=== PATIENT | female | born 1985 | race Caucasian/White ===

== ENCOUNTER 2016-11-29 16:47 | Emergency (ER) | payer MEDICARE, OTHER ==
[2016-11-29 16:59] VITALS: TEMP 97.3
--- NOTE | 2016-11-29 17:58 | ED ---
Psych HPI - General Chief Complaint: Psychiatric Symptoms Stated Complaint: Mental Health Time Seen by Provider: 11/29/16 17:26 Source: patient, RN notes reviewed Mode of arrival: ambulatory Limitations: no limitations - History of Present Illness Initial Comments: 31-year-old female presents emergency Department with chief complaint anxiety, hopeless feeling. Patient states that she is very anxious and having a panic attack. Patient states that she has had some suicidal thoughts though no plan. She states she just more she feels hopeless. Patient denies any alcohol or drug use at this time. Patient states that she has been locked up until multiple times. Patient has a physical complaints including chest pain, shortness breath, fever, chills. Patient offers no other complaints. - Related Data Home Medications Medication Instructions Recorded Confirmed Acetaminophen/Diphenhydramine 1 tab PO HS PRN 11/29/16 11/29/16 [Tylenol PM 500-25mg] Previous Rx's Medication Instructions Recorded QUEtiapine [SEROquel] 25 mg PO TID #28 tab 11/29/16 Allergies Allergy/AdvReac Type Severity Reaction Status Date / Time Penicillins Allergy Unknown Verified 11/29/16 18:15 Review of Systems ROS Statement: Those systems with pertinent positive or pertinent negative responses have been documented in the HPI. ROS Other: All systems not noted in ROS Statement are negative. Past Medical History Past Medical History: No Reported History History of Any Multi-Drug Resistant Organisms: None Reported Past Surgical History: Section Past Psychological History: Anxiety, Depression, Schizoaffective Disorder Smoking Status: Current every day smoker Past Alcohol Use History: Occasional Past Drug Use History: None Reported General Exam Limitations: no limitations General appearance: alert, in no apparent distress Head exam: Present: atraumatic, normocephalic, normal inspection Neck exam: Present: normal inspection. Absent: tenderness, meningismus, lymphadenopathy Respiratory exam: Present: normal lung sounds bilaterally. Absent: respiratory distress, wheezes, rales, rhonchi, stridor Cardiovascular Exam: Present: normal rhythm, tachycardia, normal heart sounds. Absent: systolic murmur, diastolic murmur, rubs, gallop, clicks Neurological exam: Present: alert, oriented X3, CN II-XII intact, reflexes normal. Absent: motor sensory deficit Psychiatric exam: Present: anxious Skin exam: Present: warm, dry, intact, normal color. Absent: rash Course Vital Signs 11/29/16 16:55 Temperature 97.3 F L Pulse Rate 112 H Respiratory 18 Rate Blood Pressure 137/90 O2 Sat by Pulse 98 Oximetry Medical Decision Making - Medical Decision Making 31-year-old female presented emergency department for anxiety panic attack. Patient was evaluated by EPS and discussed with psychiatrist. They do recommend cervical 25 mg 3 times a day for bipolar disorder. Patient is not suicidal. Patient will be discharged. - Lab Data Lab Results 11/29/16 11/29/16 Range/Units 17:50 17:58 Urine Color Colorless Urine Appearance Clear (Clear) Urine pH 6.5 (5.0-8.0) Ur Specific [place] 1.000 L (1.001-1.035) Urine Protein Negative (Negative) Urine Glucose (UA) Negative (Negative) Urine Ketones Negative (Negative) Urine Blood Negative (Negative) Urine Nitrate Negative (Negative) Urine Bilirubin Negative (Negative) Urine Urobilinogen <2.0 (<2.0) mg/dL Ur Leukocyte Esterase Negative (Negative) Urine Opiates Screen Not Detected (NotDetected) Ur Oxycodone Screen Not Detected (NotDetected) Urine Methadone Screen Not Detected (NotDetected) Ur Propoxyphene Screen Not Detected (NotDetected) Ur Barbiturates Screen Not Detected (NotDetected) U Tricyclic Antidepress Not Detected (NotDetected) Ur Phencyclidine Scrn Not Detected (NotDetected) Ur Amphetamines Screen Not Detected (NotDetected) U Methamphetamines Scrn Not Detected (NotDetected) U Benzodiazepines Scrn Not Detected (NotDetected) Urine Cocaine Screen Not Detected (NotDetected) U Marijuana (THC) Screen Not Detected (NotDetected) Disposition Clinical Impression: Acute anxiety, Bipolar disorder Disposition: HOME SELF-CARE Condition: Stable Instructions: Generalized Anxiety Disorder (ED) Additional Instructions: Please return to the Emergency Department if symptoms worsen or any other concerns. Prescriptions: QUEtiapine [SEROquel] 25 mg PO TID #28 tab Time of Disposition: 19:14
[2016-11-29 18:43] LABS: Appearance,Urine Clear (Clear); Bilirubin,Urine Negative (Negative); Glucose,Urine (UA) Negative (Negative); Ketones,Urine Negative (Negative); Leukocyte Esterase,Urine Negative (Negative); Nitrite,Urine Negative (Negative); PH, Urine 6.5 (5.0-8.0); Protein,Urine Negative (Negative); UA Billing (MACRO vs. MICRO) CHEM; Urobilinogen,Urine <2.0 mg/dL (<2.0)
[2016-11-29] MEDS ORDERED: LORazepam 1 MG TAB PO STA (18:49)
[2016-11-29 19:29] VITALS: BP 124/89; PULSE 100; RESP 16
== END 2016-11-29 19:29 | disposition home or self-care (01) ==
LOC: EC 16:47
DX: F41.0 Panic disorder [episodic paroxysmal anxiety] (principal); F31.9 Bipolar disorder, unspecified; R45.851 Suicidal ideations; R07.9 Chest pain, unspecified; R50.9 Fever, unspecified; R06.02 Shortness of breath; Z88.0 Allergy status to penicillin; F17.200 Nicotine dependence, unspecified, uncomplicated
CPT/HCPCS: 80306; 81003; 82075; 99284

== ENCOUNTER 2017-05-04 23:27 | Emergency (ER) | payer MEDICARE, OTHER ==
[2017-05-04 23:38] VITALS: BP 118/81; PULSE 63; RESP 20; TEMP 97.7
[2017-05-05] MEDS ORDERED: SULFAMETH-TMP DS STARTER PACK 2 TAB BTL PO STA (00:14)
--- NOTE | 2017-05-05 00:18 | ED ---
Skin/Abscess/FB HPI - General Chief complaint: Skin/Abscess/Foreign Body Stated complaint: Bump Behind Ear Time Seen by Provider: 05/04/17 23:43 Source: patient, RN notes reviewed, old records reviewed Mode of arrival: ambulatory Limitations: no limitations - History of Present Illness Initial comments: This is a 32 year old female with Chief compliant of a large pimple behind the left ear. Patient reports that she noticed the swelling 2 days ago, patient reports she wears gages in her ears. Patient has no fever or chills, denies any problems hearing. Patient reports that she has never had this happen before. She reports that it started with irritation from the earrings. - Related Data Home Medications Medication Instructions Recorded Confirmed clonazePAM [KlonoPIN] 0.5 mg PO HS 05/04/17 05/04/17 Previous Rx's Medication Instructions Recorded Sulfamethox-Tmp 800-160Mg [Bactrim 1 tab PO Q12HR #20 tab 05/05/17 DS 800-160 mg] Allergies Allergy/AdvReac Type Severity Reaction Status Date / Time Penicillins Allergy Unknown Verified 05/04/17 23:38 Review of Systems ROS Statement: Those systems with pertinent positive or pertinent negative responses have been documented in the HPI. ROS Other: All systems not noted in ROS Statement are negative. Constitutional: Denies: fever, chills Eyes: Denies: eye pain Endocrine: Denies: heat or cold intolerance Gastrointestinal: Denies: abdominal pain Genitourinary: Denies: dysuria Musculoskeletal: Denies: back pain Neurological: Denies: headache, weakness Psychiatric: Denies: anxiety, depression Hematological/Lymphatic: Denies: easy bleeding Past Medical History Past Medical History: No Reported History Additional Past Medical History / Comment(s): anxiety History of Any Multi-Drug Resistant Organisms: None Reported Past Surgical History: Section Past Psychological History: Anxiety, Depression, Schizoaffective Disorder Smoking Status: Current every day smoker Past Alcohol Use History: Occasional Past Drug Use History: None Reported General Exam Limitations: no limitations General appearance: alert, in no apparent distress Head exam: Present: atraumatic, normocephalic, normal inspection Eye exam: Present: normal appearance, PERRL, EOMI. Absent: scleral icterus, conjunctival injection, periorbital swelling ENT exam: Present: normal exam, mucous membranes moist, other (Patient has erythema and swelling behind the right earlobe. Evidence of a superficial abscess.) Course Vital Signs 05/04/17 05/05/17 23:35 00:32 Temperature 97.7 F 97.7 F Pulse Rate 63 63 Respiratory 20 20 Rate Blood Pressure 118/81 118/81 O2 Sat by Pulse 98 98 Oximetry Procedures - Incision & Drainage Consent Obtained: verbal consent Indication: left earlobe access Size (cm): 2 Sterile Field Used?: Yes Scalpel Used: #11 I&D Drainage Obtained: Pus, Blood Culture Obtained?: Yes Patient Tolerated Procedure: well, no complications Medical Decision Making - Medical Decision Making This is a 32 year old female with Chief compliant of a large pimple behind the left ear. Patient reports that she noticed the swelling 2 days ago, patient reports she wears gages in her ears. Patient has no fever or chills, denies any problems hearing. Patient reports that she has never had this happen before. She reports that it started with irritation from the earrings. Patient ear abscess measures 2cm, and patient had incision and drainage. PAtient had pus drainage from the area. Patient will be started on antibiotics. PAtient could not be packed with iodoform due to location of area. Patient advised to follow up with PCP and to complete antibiotic prescription. Patient understands treatment planand will comply. Disposition Clinical Impression: Abscess, earlobe Disposition: HOME SELF-CARE Condition: Good Instructions: Abscess (ED) Additional Instructions: Monitor for any worsening signs of infection including worsening swelling redness and drainage. Follow-up with her primary care provider if symptoms continue to persist. Return to emergency department if any alarming signs or symptoms occur. Completely anabiotic prescription. Prescriptions: Sulfamethox-Tmp 800-160Mg [Bactrim DS 800-160 mg] 1 tab PO Q12HR #20 tab Referrals: Rikki Davey DO [Primary Care Provider] - 1-2 days Time of Disposition: 00:17
== END 2017-05-05 00:32 | disposition home or self-care (01) ==
LOC: EC 23:27
DX: H60.02 Abscess of left external ear (principal); F17.200 Nicotine dependence, unspecified, uncomplicated; Z79.899 Other long term (current) drug therapy; Z88.0 Allergy status to penicillin
CPT/HCPCS: 69000; 87070; 87205; 99284

== ENCOUNTER → 2020-01-30 | Outpatient (CLI) | payer BC ==
--- NOTE | 2020-01-30 12:17 | US ---
EXAMINATION TYPE: US pelvis complete transvag DATE OF EXAM: 01/30/2020 COMPARISON: NONE CLINICAL HISTORY: R10.2 PELVIC AND PERINEAL PAIN. Patient has left adnexal pain that extends down her leg when she lays down. TECHNIQUE: Transvaginal (TV) and Transabdominal (TA) . Transabdominal sonographic images of the pel vis were ordered by physician. Date of LMP: 01/23/20 EXAM MEASUREMENTS: Uterus: 9.2 x 5.0 x 5.7 cm Endometrial Stripe: 0.7 cm Right Ovary: 2.1 x 1.7 x 1.7 cm Left Ovary: 2.0 x 1.1 x 1.4 cm 1. Uterus: Anteverted wnl 2. Endometrium: wnl 3. Right Ovary: wnl 4. Left Ovary: wnl 5. Bilateral Adnexa: wnl 6. Posterior cul-de-sac: wnl IMPRESSION: Unremarkable pelvic ultrasound. Endometrial thickness is within normal limits.
== END | disposition home or self-care (01) ==
LOC: RADUSWWP 10:13
PROVIDERS: ATTEND Nurse Practitioner Family
DX: R10.2 Pelvic and perineal pain (principal)
CPT/HCPCS: 76830; 76856

== ENCOUNTER → 2020-08-17 | Outpatient (CLI) | payer BC ==
[2020-08-17 12:52] LABS: Basophils % (A) 1 %; Eosinophils # (A) 0.1 k/uL (0-0.7); Eosinophils % (A) 2 %; HCT 42.4 % (34.0-46.0); Lymphocytes # (A) 1.7 k/uL (1.0-4.8); Lymphocytes % (A) 29 %; MCH 32.9 pg (25.0-35.0); MCHC 33.1 g/dL (31.0-37.0); MCV 99.5 fL (80.0-100.0); Mean Platelet Volume 7.8; Monocytes # (A) 0.3 k/uL (0-1.0); Monocytes % (A) 5 %; Neutrophils # (A) 3.6 k/uL (1.3-7.7); Neutrophils % (A) 62 %; Platelet Count 211 k/uL (150-450); RBC 4.26 m/uL (3.80-5.40); RDW 11.7 % (11.5-15.5); WBC 5.9 k/uL (3.8-10.6)
== END | disposition home or self-care (01) ==
LOC: LABPAT 12:08
PROVIDERS: ATTEND Obstetrics & Gynecology
DX: Z01.818 Encounter for other preprocedural examination (principal)
CPT/HCPCS: 36415; 85025

== ENCOUNTER 2020-08-19 08:54 | Day surgery (SDC) | payer BC ==
--- NOTE | 2020-08-18 17:04 | P.HPOB ---
History of Present Illness H&P Date: 08/18/20 Chief Complaint: Cervical dysplasia Latisha is a 35-year-old female with CORINNE-3 on colposcopy. She is scheduled for a LEEP colposcopy. Risks/benefits/alternatives to this procedure were reviewed the patient in detail all questions were answered for her prior to proceeding to the operative room. On physical exam vital signs are stable and afebrile. Heart regular, lungs clear, extremities without pain. Abdomen soft and pelvic exam is otherwise unremarkable. She was having some palpitations when this was scheduled and surgical clearance from her primary care prior was obtained. Past Medical History Past Medical History: No Reported History Additional Past Medical History / Comment(s): anxiety History of Any Multi-Drug Resistant Organisms: None Reported Past Surgical History: Section Past Psychological History: Anxiety, Depression, Schizoaffective Disorder Past Alcohol Use History: Occasional Past Drug Use History: None Reported Medications and Allergies Home Medications Medication Instructions Recorded Confirmed Type clonazePAM [KlonoPIN] 0.5 mg PO HS 05/04/17 05/04/17 History Sulfamethox-Tmp 800-160Mg [Bactrim 1 tab PO Q12HR #20 tab 05/05/17 Rx DS 800-160 mg] Allergies Allergy/AdvReac Type Severity Reaction Status Date / Time Penicillins Allergy Unknown Verified 05/04/17 23:38 Exam Osteopathic Statement: *. No significant issues noted on an osteopathic structural exam other than those noted in the History and Physical/Consult. - OBG Physical Exam Breast: both: normal (no masses) Abdomen: bowel sounds normal, no diffuse tenderness, no bruit present, no guarding noted, no hepatomegaly, no splenomegaly, no mass Vulva: both: normal Vagina: normal moisture, no discharge Cervix: no lesion, no discharge Uterus: normal size, normal contour Adnexa: both: normal Anus/Rectum: normal perianal skin, no rectal mass, no hemorrhoids, heme negative
[~2020-08-19 08:54] MED LIST: HYDROmorphone 0.5 MG/0.5 ML SYRINGE IVP PRN; KETOROLAC 15 MG/ML 1 ML VIAL IVP SCH; LACTATED RINGERS 1,000 ML IV SCH; LIDOCAINE 1% (10MG/ML) FOR IV START INTRADERMA PRN; ONDANSETRON 4 MG/2 ML VIAL IVP PRN; Pre Op ABX Message 1 EACH MISC MISCELLANE ONE
[2020-08-19] MEDS: ONDANSETRON 4 MG/2 ML VIAL IVP ONE ×2 (09:54→10:14)
[2020-08-19] MEDS: DEXAMETHASONE SOD PHOSPHATE 10 MG/ML 1 ML VIAL IV ONE ×2 (09:54→10:14)
[2020-08-19] MEDS ORDERED: MIDAZOLAM 2 MG/2 ML VIAL IV ONE (10:14)
[2020-08-19] MEDS ORDERED: PROPOFOL 10 MG/ML 20 ML VIAL IV ONE (10:15)
[2020-08-19] MEDS ORDERED: MIDAZOLAM 2 MG/2 ML VIAL ONE (10:15)
[2020-08-19] MEDS ORDERED: KETOROLAC 15 MG/ML 1 ML VIAL ONE (10:15)
[2020-08-19] MEDS ORDERED: fentaNYL (PF) 50 MCG/ML 2 ML AMP ONE (10:15)
[2020-08-19] MEDS ORDERED: IODINE/POTASS IOD (LUGOLS) BOTTLE TOPICAL ONE (10:41)
--- NOTE | 2020-08-19 10:56 | P.OP ---
Date of Procedure: 08/19/20 Preoperative Diagnosis: Cervical dysplasia Postoperative Diagnosis: Same Procedure(s) Performed: LEEP colposcopy Anesthesia: MANN Surgeon: Mele Mack Estimated Blood Loss (ml): 2 Pathology: other (Cervical cone) Condition: stable Disposition: same day Operative Findings: Pathology pending Description of Procedure: Patient was taken to the operating suite where a general anesthetic was found be adequate. She was prepped and draped in normal sterile fashion and placed in the dorsal lithotomy position. Initially a coated speculum was inserted in the vagina and the cervix was covered with Lugol solution. Using a colposcope the areas of dysplasia were identified using a 2 cm loop the cervical cone was excised. Completed was marked 12:00 and sent to pathology for evaluation. Once this was completed, a ball-tipped cautery was then used to obtain excellent hemostasis across the ectocervix and endocervix and was used to desiccate any potential remaining dysplastic tissue. All instruments were then removed. Sponge, lap, and counts were all correct 2. Patient was then taken to the recovery room in stable and satisfactory condition. Plan - Discharge Summary New Discharge Prescriptions: New Ibuprofen [Motrin] 600 mg PO Q6HR PRN #30 tab PRN Reason: Pain No Action Ibuprofen [Motrin] 600 mg PO Q6HR PRN PRN Reason: Pain Discharge Medication List Ibuprofen [Motrin] 600 mg PO Q6HR PRN 08/19/20 [History] Ibuprofen [Motrin] 600 mg PO Q6HR PRN #30 tab 08/19/20 [Rx] Follow up Appointment(s)/Referral(s): Mele Mack DO [Doctor of Osteopathic Medicine] - 10 Days Activity/Diet/Wound Care/Special Instructions: No heavy lifting, limit stairs and driving, and pelvic rest. If any high temperatures, heavy bleeding, or severe pain call my office
[2020-08-19 11:03] VITALS: TEMP 97
[2020-08-19 11:04] VITALS: RESP 16
[2020-08-19 12:31] VITALS: BP 105/63; PULSE 60
== END 2020-08-19 13:09 | disposition home or self-care (01) ==
LOC: OR 08:54
PROVIDERS: ATTEND Obstetrics & Gynecology
DX: N87.1 Moderate cervical dysplasia (principal); F41.9 Anxiety disorder, unspecified; F32.9 Major depressive disorder, single episode, unspecified; F25.9 Schizoaffective disorder, unspecified; Z88.0 Allergy status to penicillin; Z79.899 Other long term (current) drug therapy; Z98.891 History of uterine scar from previous surgery
CPT/HCPCS: 81025; 88307; 84703; 57460; J2250; J1100; J2405; J3010; J1885; J2704